=== PATIENT | female | born 2000 | race African-American/Black ===

== ENCOUNTER 2024-07-14 15:29 | Emergency (ER) | payer BC ==
[~2024-07-14] VITALS: Ht 167.6 cm; Wt 153.3 kg
[2024-07-14] MEDS ORDERED: LIDOCAINE 1%-EPI 1:100,000 20 ML VIAL ONE (18:11)
[2024-07-14] MEDS: LIDOCAINE 1%-EPI 1:100,000 20 ML VIAL TP ONE (18:23)
[2024-07-14] MEDS ORDERED: NAPR-1009 PO (19:18)
[2024-07-14] MEDS ORDERED: ACET-73 PO (19:18)
[2024-07-14] MEDS ORDERED: CLIN300C12 PO (19:18)
[2024-07-14 19:27] VITALS: BP 10/82; TEMP 98.1; O2SAT 98
== END 2024-07-14 19:28 | disposition home or self-care (01) ==
LOC: ER 15:39
DX: N61.1 Abscess of the breast and nipple (principal); N64.4 Mastodynia; J45.909 Unspecified asthma, uncomplicated; Z79.899 Other long term (current) drug therapy
CPT/HCPCS: 99284; 10160; 76642; J3490

== ENCOUNTER 2024-08-01 10:42 | Emergency (ER) | payer BC ==
[~2024-08-01] VITALS: Ht 162.6 cm; Wt 149.7 kg
[~2024-08-01 10:42] MED LIST: ACET-73 PO; CLIN300C12 PO; NAPR-1009 PO
[2024-08-01 11:31] LABS: BASOPHILS # (AUTO) 0.1 K/uL (0.0-0.2); BASOPHILS % (AUTO) 0.7 % (0.0-2.0); EOSINOPHILS # (AUTO) 0.6 K/uL (0.0-0.7); EOSINOPHILS % (AUTO) 6.1 % (0.0-6.0); HEMATOCRIT 38 % (33-45); HEMOGLOBIN 12.1 g/dL (11.5-14.8); LYMPHOCYTES # (AUTO) 2.3 K/uL (0.8-4.8); LYMPHOCYTES % (AUTO) 24.1 % (20.0-44.0); MEAN CORPUSCULAR HEMOGLOBIN 27 PG (26.0-33.0); MEAN CORPUSCULAR HGB CONC 32 g/dl (31.0-36.0); MEAN CORPUSCULAR VOLUME 83 fL (82-100); MONOCYTES # (AUTO) 0.5 K/uL (0.1-1.30); MONOCYTES % (AUTO) 5.3 % (2.0-12.0); NEUTROPHILS # (AUTO) 6.1 K/uL (1.8-8.9); NEUTROPHILS % (AUTO) 63.8 % (43.0-81.0); PLATELET COUNT (AUTO) 345 K/uL (150-450); RED BLOOD CELL COUNT(AUTO) 4.49 MIL/uL (4.0-5.2); RED CELL DISTRIBUTION WIDTH 14.6 % (11.5-15.0); WHITE BLOOD COUNT (AUTO) 9.6 K/uL (4.3-11.0)
[2024-08-01 11:46] LABS: ALBUMIN 3.3 g/dL (3.4-5.0); BILIRUBIN,DIRECT 0.1 mg/dL (0.0-0.2); BILIRUBIN,TOTAL 0.4 mg/dL (0.2-1.0); CREATININE 0.7 mg/dL (0.6-1.3); POTASSIUM 4.2 mmol/L (3.5-5.1); TOTAL PROTEIN, SERUM 7.4 g/dL (6.4-8.2)
[2024-08-01 12:21] VITALS: BP 138/84; TEMP 98.8; O2SAT 100
== END 2024-08-01 12:22 | disposition home or self-care (01) ==
LOC: ER 10:50
DX: K80.20 Calculus of gallbladder without cholecystitis without obstruction (principal); J45.909 Unspecified asthma, uncomplicated; R11.0 Nausea; R10.2 Pelvic and perineal pain
CPT/HCPCS: 36415; 76700-TC; 80048-TC; 80076-TC; 84702-TC; 85025-TC

== ENCOUNTER 2024-09-18 16:36 | Emergency (ER) | payer BC ==
[~2024-09-18] VITALS: Ht 167.6 cm; Wt 149.7 kg
[2024-09-18] MEDS ORDERED: predniSONE 20 MG TABLET ONE (17:56)
[2024-09-18] MEDS: predniSONE 20 MG TABLET PO ONE (18:00)
[2024-09-18] MEDS ORDERED: IPRATROPIUM NEB FS 0.5 MG/2.5 ML AMPUL.NEB ONE (18:05)
[2024-09-18] MEDS ORDERED: ALBUTEROL FS 2.5 MG/3 ML VIAL.NEB ONE ×2 (18:05→19:30)
[2024-09-18 18:07] VITALS: O2SAT 98
[2024-09-18] MEDS: IPRATROPIUM NEB FS 0.5 MG/2.5 ML AMPUL.NEB NEB ONE (18:07)
[2024-09-18] MEDS: ALBUTEROL FS 2.5 MG/3 ML VIAL.NEB NEB ONE ×2 (18:07→19:21)
[2024-09-18 18:22] VITALS: O2SAT 100
[2024-09-18 19:21] VITALS: O2SAT 98
[2024-09-18 19:36] VITALS: O2SAT 100
[2024-09-18] MEDS ORDERED: PRED50TA PO (19:44)
[2024-09-18 19:53] VITALS: BP 132/81; TEMP 98; O2SAT 100
== END 2024-09-18 19:53 | disposition home or self-care (01) ==
LOC: ER 16:37
DX: B30.9 Viral conjunctivitis, unspecified (principal); J45.901 Unspecified asthma with (acute) exacerbation; Z79.52 Long term (current) use of systemic steroids
CPT/HCPCS: 99285; 94640 ×2; J7512

== ENCOUNTER 2024-10-06 14:26 | Emergency (ER) | payer BC ==
[~2024-10-06] VITALS: Ht 167.6 cm; Wt 65.8 kg
[~2024-10-06 14:26] MED LIST changes: +PRED50TA PO
[2024-10-06] MEDS ORDERED: predniSONE 20 MG TABLET ONE (14:56)
[2024-10-06] MEDS: predniSONE 20 MG TABLET PO ONE (15:00)
[2024-10-06 15:30] VITALS: O2SAT 98
[2024-10-06] MEDS ORDERED: ALBUTEROL FS 2.5 MG/3 ML VIAL.NEB ONE (15:33)
[2024-10-06] MEDS ORDERED: IPRATROPIUM NEB FS 0.5 MG/2.5 ML AMPUL.NEB ONE (15:33)
[2024-10-06] MEDS: ALBUTEROL FS 2.5 MG/3 ML VIAL.NEB CONTNEB ONE (15:35)
[2024-10-06] MEDS: IPRATROPIUM NEB FS 0.5 MG/2.5 ML AMPUL.NEB NEB ONE (15:35)
[2024-10-06 16:02] VITALS: O2SAT 100
[2024-10-06] MEDS ORDERED: ALBU18HF2 INH (16:43)
[2024-10-06] MEDS ORDERED: PRED50TA PO (16:43)
[2024-10-06 17:44] VITALS: BP 122/66; TEMP 98.1; O2SAT 100
== END 2024-10-06 17:30 | disposition home or self-care (01) ==
LOC: ER 14:41
DX: J45.901 Unspecified asthma with (acute) exacerbation (principal); Z79.52 Long term (current) use of systemic steroids
CPT/HCPCS: 99283; 71045; 94799; 94640; J7512

== ENCOUNTER 2025-01-03 10:11 | Emergency (ER) | payer BC ==
[~2025-01-03] VITALS: Ht 167.6 cm; Wt 141.1 kg
[~2025-01-03 10:11] MED LIST changes: +ALBU18HF2 INH
[2025-01-03 10:46] VITALS: TEMP 98.4
[2025-01-03 10:59] VITALS: O2SAT 97
[2025-01-03] MEDS: IPRATROPIUM NEB FS 0.5 MG/2.5 ML AMPUL.NEB NEB ONE (10:59)
[2025-01-03] MEDS: ALBUTEROL FS 2.5 MG/3 ML VIAL.NEB NEB ONE (10:59)
[2025-01-03] MEDS ORDERED: IPRATROPIUM NEB FS 0.5 MG/2.5 ML AMPUL.NEB ONE (11:00)
[2025-01-03] MEDS ORDERED: ALBUTEROL FS 2.5 MG/3 ML VIAL.NEB ONE (11:00)
[2025-01-03] MEDS ORDERED: predniSONE 20 MG TABLET ONE (11:14)
[2025-01-03] MEDS: predniSONE 20 MG TABLET PO ONE (11:15)
[2025-01-03 11:18] VITALS: O2SAT 100
[2025-01-03 11:48] LABS: APPEARANCE,URINE CLEAR (CLEAR); BILIRUBIN,URINE NEGATIVE (NEGATIVE); BLOOD, URINE TRACE-INTA Ery/uL (NEGATIVE); COLOR,URINE YELLOW (YELLOW); KETONES,URINE NEGATIVE (NEGATIVE); LEUKOCYTE ESTERASE ,URINE NEGATIVE (NEGATIVE); NITRITE, URINE NEGATIVE (NEGATIVE); PROTEIN,URINE NEGATIVE (NEGATIVE); UGLUCOSE NEGATIVE (NEGATIVE); UROBILINOGEN,URINE 0.2 EU/dL (0.2)
[2025-01-03 11:49] LABS: PREGNANCY TEST URINE QUAL NEGATIVE (NEGATIVE)
[2025-01-03] MEDS ORDERED: PRED50TA PO (11:56)
[2025-01-03] MEDS ORDERED: ALBU18HF2 INH (11:56)
[2025-01-03] MEDS ORDERED: ALBU2.5V13 NEB (11:56)
[2025-01-03 12:09] VITALS: BP 135/82; O2SAT 98
[2025-01-03 12:19] LABS: ADD URINE CULTURE NO; BACTERIA,URINE Rare /HPF (None Seen); RBC,URINE 0-2 /HPF (0-2); WBC,URINE 0-2 /HPF (0-3)
== END 2025-01-03 12:05 | disposition home or self-care (01) ==
LOC: ER 10:14
DX: J45.901 Unspecified asthma with (acute) exacerbation (principal); Z79.52 Long term (current) use of systemic steroids
CPT/HCPCS: 99285; 71045; 93005; 84703; 81001 ×2; 94640; J7512

== ENCOUNTER 2025-01-06 11:20 | Emergency (ER) | payer BC ==
[~2025-01-06] VITALS: Ht 167.6 cm; Wt 141.5 kg
[~2025-01-06 11:20] MED LIST changes: +ALBU2.5V13 NEB
[2025-01-06] MEDS ORDERED: BENZONATATE 100 MG CAPSULE PO ONE (14:36)
[2025-01-06] MEDS: BENZONATATE 100 MG CAPSULE PO ONE (14:36)
[2025-01-06] MEDS ORDERED: ALBUTEROL FS 2.5 MG/3 ML VIAL.NEB ONE ×2 (14:43→16:06)
[2025-01-06] MEDS ORDERED: IPRATROPIUM NEB FS 0.5 MG/2.5 ML AMPUL.NEB ONE (14:43)
[2025-01-06 14:50] VITALS: O2SAT 99
[2025-01-06] MEDS: IPRATROPIUM NEB FS 0.5 MG/2.5 ML AMPUL.NEB NEB ONE (14:50)
[2025-01-06] MEDS: ALBUTEROL FS 2.5 MG/3 ML VIAL.NEB NEB ONE (14:50)
[2025-01-06 15:12] VITALS: O2SAT 100
[2025-01-06] MEDS: ALBUTEROL FS 2.5 MG/0.5 ML VIAL.NEB NEB ONE (16:10)
[2025-01-06] MEDS ORDERED: PROM118S5 PO (16:27)
[2025-01-06 16:48] VITALS: BP 109/74; TEMP 98.2; O2SAT 98
== END 2025-01-06 16:50 | disposition home or self-care (01) ==
LOC: ER 11:26
DX: R05.9 Cough, unspecified (principal); R06.02 Shortness of breath; J45.909 Unspecified asthma, uncomplicated; Z79.52 Long term (current) use of systemic steroids
CPT/HCPCS: 71045-TC

== ENCOUNTER 2025-05-26 20:47 | Emergency (ER) | payer BC ==
[~2025-05-26] VITALS: Ht 167.6 cm; Wt 138.8 kg
[~2025-05-26 20:47] MED LIST changes: +PROM118S5 PO
[2025-05-26 21:09] VITALS: BP 130/82; TEMP 98.9
[2025-05-26] MEDS ORDERED: VALA100026 PO (21:41)
[2025-05-26 22:05] VITALS: O2SAT 98
== END 2025-05-26 22:06 | disposition home or self-care (01) ==
LOC: ER 20:50
DX: K13.79 Other lesions of oral mucosa (principal); B00.2 Herpesviral gingivostomatitis and pharyngotonsillitis; J45.909 Unspecified asthma, uncomplicated; Z79.52 Long term (current) use of systemic steroids; Z79.624 Long term (current) use of inhibitors of nucleotide synthesis; Z79.899 Other long term (current) drug therapy